=== PATIENT | female | born 1990 | race American Indian/Alaskan Native ===

== ENCOUNTER 2017-11-09 21:33 | Emergency (ER) | payer OTHER ==
[2017-11-09 21:57] VITALS: BP 124/89; PULSE 85; RESP 16; TEMP 98.3; O2SAT 98
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
== END 2017-11-09 23:21 | disposition home or self-care (01) ==
LOC: C.ER 21:33
DX: S39.012A Strain of muscle, fascia and tendon of lower back, initial encounter (principal); V43.52XA Car driver injured in collision with other type car in traffic accident, initial encounter